=== PATIENT | female | born 1990 | race Caucasian/White ===

== ENCOUNTER 2016-04-23 17:57 | Emergency (ER) | payer OTHER ==
[2016-04-23 18:08] VITALS: BP 126/72; PULSE 104; TEMP 97.8; BMI 29.0
--- NOTE | 2016-04-23 19:47 | PDOC ---
History of Present Illness - General History Source: Patient Exam Limitations: No Limitations - History of Present Illness Initial Comments: 04/23/16 19:49 The patient is a 25 year old female, who is , approximately 17 weeks , with past gestational diabetes, and appendicitis s/p appendectomy who presents to the ED complaining of 1 day of intermittent suprapubic cramping. She states her cramping has become more frequent throughout the day, now becoming constant. No vaginal bleeding. No fever or chills. No hematuria, dysuria, frequency. No vomiting or diarrhea. She states she has history of labor at 30 weeks, prompting her to come to the ED for evaluation. PCP: Dr. Saleem \ <Jess Love - Last Filed: 04/23/16 21:00> <Leora Pedro - Last Filed: 04/23/16 21:13> <Jumana Quiroz - Last Filed: 04/23/16 21:30> - General Chief Complaint: Pain Stated Complaint: 17WKS/ABD PAIN Time Seen by Provider: 04/23/16 19:39 Past History <Jess Love - Last Filed: 04/23/16 21:00> - Past Medical History Asthma: No Cancer: No Cardiac Disorders: No Diabetes: No HTN: No Suicide Attempt (Hx): No Seizures: No Thyroid Disease: No Other medical history: none - Surgical History Appendectomy: Yes - Immunization History Immunization Up to Date: No - Psycho/Social/Smoking Cessation Hx Anxiety: No Suicidal Ideation: No Smoking Status: No Smoking History: Never smoked Have you smoked in the past 12 months: No Number of Cigarettes Smoked Daily: 0 Information on smoking cessation initiated: No Hx Alcohol Use: No Drug/Substance Use Hx: No Substance Use Type: None Hx Substance Use Treatment: No <Leora Pedro - Last Filed: 04/23/16 21:13> <Jumana Quiroz - Last Filed: 04/23/16 21:30> - Past Medical History Allergies/Adverse Reactions: Allergies Allergy/AdvReac Type Severity Reaction Status Date / Time No Known Allergies Allergy Verified 04/23/16 18:05 Home Medications: Ambulatory Orders Vit/Iron Fumarate/FA [ Tablet] 1 each PO DAILY 04/10/14 Acetaminophen [Tylenol .Regular Strength -] 650 mg PO Q6H PRN #0 tablet Ondansetron [Zofran Odt -] 4 mg SL TID #6 od.tablet 07/13/14 Erythromycin 0.5% Eye Ointment [Erythromycin 0.5% Eye Ointment -] 1 applic OU ASDIR #1 tube 10/04/15 Review of Systems - Review of Systems Able to Perform ROS?: Yes Comments:: 04/23/16 19:51 CONSTITUTIONAL: Absent: fever, chills, diaphoresis, generalized weakness, malaise, loss of appetite HEENT: Absent: rhinorrhea, nasal congestion, throat pain, throat swelling, difficulty swallowing, mouth swelling, ear pain, eye pain, visual Changes CARDIOVASCULAR: Absent: chest pain, syncope, palpitations, irregular heart rate, lightheadedness , peripheral edema RESPIRATORY: Absent: cough, shortness of breath, dyspnea with exertion, orthopnea, wheezing, stridor, hemoptysis GASTROINTESTINAL: Absent: abdominal pain, abdominal distension, nausea, vomiting, diarrhea, constipation, melena, hematochezia GENITOURINARY: Present: Suprapubic cramping. Absent: vaginal bleeding, dysuria, frequency, urgency, hesitancy, hematuria, flank pain, genital pain MUSCULOSKELETAL: Absent: myalgia, arthralgia, joint swelling SKIN: Absent: rash, itching, pallor HEMATOLOGIC/IMMUNOLOGIC: Absent: easy bleeding, easy bruising, lymphadenopathy, frequent infections ENDOCRINE: Absent: unexplained weight gain, unexplained weight loss, heat intolerance, cold intolerance NEUROLOGIC: Absent: headache, focal weakness or paresthesias, dizziness, unsteady gait, seizure, mental status changes, bladder or bowel incontinence PSYCHIATRIC: Absent: anxiety, depression, suicidal or homicidal ideation, hallucinations. <Jess Love - Last Filed: 04/23/16 21:00> *Physical Exam - Vital Signs Last Vital Signs Temp Pulse Resp BP Pulse Ox 97.8 F 104 H 18 126/72 100 04/23/16 18:06 04/23/16 18:06 04/23/16 18:06 04/23/16 18:06 04/23/16 18:06 - Physical Exam Comments: 04/23/16 19:53 GENERAL: Well developed, well nourished. Awake and alert. No acute distress. HEENT: Normocephalic, atraumatic. PERRLA, EOMI. No conjunctival pallor. Sclera are non- icteric. Moist mucous membranes. Oropharynx is clear. NECK: Supple. Full ROM. No JVD. Carotid pulses 2+ and symmetric, without bruits. No thyromegaly. No lymphadenopathy. CARDIOVASCULAR: Regular rate and rhythm. No murmurs, rubs, or gallops. Distal pulses are 2+ and symmetric. PULMONARY: No evidence of respiratory distress. Lungs clear to auscultation bilaterally. No wheezing, rales or rhonchi. ABDOMINAL: Soft. Non-tender. Non-distended. No rebound or guarding. No organomegaly. Normoactive bowel sounds. MUSCULOSKELETAL Normal range of motion at all joints. No bony deformities or tenderness. No CVA tenderness. EXTREMITIES: No cyanosis. No clubbing. No edema. No calf tenderness. SKIN: Warm and dry. Normal capillary refill. No rashes. No jaundice. NEUROLOGICAL: Alert, awake, appropriate. Cranial nerves 2-12 intact. No deficits to light touch and temperature in face, upper extremities and lower extremities. No motor deficits in the in face, upper extremities and lower extremities. Normoreflexic in the upper and lower extremities. Normal speech. Toes are down- going bilaterally. Gait is normal without ataxia. PSYCHIATRIC: Cooperative. Good eye contact. Appropriate mood and affect. <Jess Love - Last Filed: 04/23/16 21:00> - Vital Signs Last Vital Signs Temp Pulse Resp BP Pulse Ox 97.8 F 104 H 18 126/72 100 04/23/16 18:06 04/23/16 18:06 04/23/16 18:06 04/23/16 18:06 04/23/16 18:06 <Leora Pedro - Last Filed: 04/23/16 21:13> - Vital Signs Last Vital Signs Temp Pulse Resp BP Pulse Ox 97.8 F 104 H 18 126/72 100 04/23/16 18:06 04/23/16 18:06 04/23/16 18:06 04/23/16 18:06 04/23/16 18:06 <Jumana Quiroz - Last Filed: 04/23/16 21:30> ED Treatment Course - ADDITIONAL ORDERS Additional order review: Laboratory Results 04/23/16 19:46 Urine Color Ltyellow Urine Appearance Slcloudy Urine pH 6.0 Ur Specific Carroll 1.018 Urine Protein Negative Urine Glucose (UA) Negative Urine Ketones Negative Urine Blood Negative Urine Nitrite Negative Urine Bilirubin Negative Urine Urobilinogen Negative Ur Leukocyte Esterase Trace H D Urine RBC 1 Urine WBC 3 Ur Epithelial Cells Few Urine Bacteria Rare Hyaline Casts 1 Urine Mucus Rare Urine HCG, Qual Positive - RADIOLOGY Radiograph Interpretation: 04/23/16 21:26 Obstetrics Ultrasound Impression: Single viable intrauterine gestation at approximately 17 weeks 3 days. No definite sonographic abnormality is identified. Reported By: Estiven Smith MD <Jumana Quiroz - Last Filed: 04/23/16 21:30> Medical Decision Making - Medical Decision Making 04/23/16 21:00 Gestational US, read and interpreted by Dr. Smith reveals single viable IUP at approximately 17 weeks. <Jess Love - Last Filed: 04/23/16 21:00> *DC/Admit/Observation/Transfer - Attestations Scribe Attestion: 04/23/16 19:53 Documentation prepared by Jess Love, acting as medical billing assistant for Leora Pedro MD. 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
[2016-04-23 19:55] LABS: URINE APPEARANCE SLCLOUDY; URINE BILIRUBIN NEGATIVE (NEGATIVE); URINE BLOOD NEGATIVE (NEGATIVE); URINE COLOR LTYELLOW; URINE GLUCOSE (UA) NEGATIVE (NEGATIVE); URINE KETONE NEGATIVE (NEGATIVE); URINE NITRITE NEGATIVE (NEGATIVE); URINE PROTEIN NEGATIVE (NEGATIVE); URINE UROBILINOGEN NEGATIVE E.U./dl (0.2-1.0)
[2016-04-23 20:00] LABS: URINE LEUK ESTERASE TRACE (NEGATIVE)
[2016-04-23 20:01] LABS: URINE BACTERIA RARE /hpf (NONE SEEN); URINE HYALINE CAST 1 /lpf; URINE MUCUS RARE; URINE RBC 1 /hpf (0-3); URINE WBC 3 /hpf (3-5)
== END 2016-04-23 21:26 | disposition home or self-care (01) ==
LOC: JER 17:57
DX: O26.892 Other specified pregnancy related conditions, second trimester (principal); R10.2 Pelvic and perineal pain; Z3A.17 17 weeks gestation of pregnancy
CPT/HCPCS: 76815-TC; 81003; 81015; 84703; 99281-25

== ENCOUNTER 2016-09-06 09:20 | Inpatient (IN) | payer OTHER ==
[2016-09-06] MEDS ORDERED: TUBERCULIN PPD 5 TU/0.1ML SYRINGE (IN PATIENT USE ONLY) ID ONE (10:53)
[2016-09-06 11:31] LABS: BASOPHIL 0.4 % (0-2.0); EOSINOPHIL 0.9 % (0-4.5); MCH 26.8 pg (25.7-33.7); MCHC 32.8 g/dl (32.0-36.0); MEAN CELL VOLUME 81.7 fl (80-96); MEAN PLT VOLUME 10.3 fl (7.5-11.1); NEUTROPHILS 73.1 % (42.8-82.8); PLATELET COUNT 141 K/MM3 (134-434); RDW 15.5 % (11.6-15.6); WHITE BLOOD COUNT 7.8 K/mm3 (4.0-10.0)
[2016-09-06] MEDS ORDERED: BUTORPHANOL TARTRATE 1 MG/ML VIAL IVPB ONE (11:31)
--- NOTE | 2016-09-06 11:31 | HP ---
Past Medical History - Primary Care Physician PCP:: Roxann Hammond - Admission Chief Complaint: contractions at 36 weeks History Source: Patient - Past Medical History ...: 3 ...Para: 2 ...Term: 1 ...: 1 ...Spon : 0 ...Induced : 0 ...LMP: 12/27/15 ... Weeks Gestation by Dates: 36.2 ...EDC by Dates: 10/02/16 ...EDC by Sono: 09/29/16 Additional Medical History: gestational DM. x 1 6lb 12oz. abn pap hx LGSIl. Fm Hx Mother & father with DM. usg at 8wk edc of 06/08/14 ega 34.3 weeks - Past Surgical History Past Surgical History: Yes: None, Appendectomy Hx Myomectomy: No Hx Transabdominal Cerclage: No - Smoking History Smoking history: Never smoked Have you smoked in the past 12 months: No Aproximately how many cigarettes per day: 0 - Alcohol/Substance Use Hx Alcohol Use: No History of Substance Use: reports: None - Social History Usual Living Arrangement: Yes: With Spouse History of Recent Travel: No Home Medications - Allergies Allergies/Adverse Reactions: Allergies Allergy/AdvReac Type Severity Reaction Status Date / Time No Known Allergies Allergy Verified 08/31/16 23:59 - Home Medications Home Medications: Ambulatory Orders Vit/Iron Fumarate/FA [ Tablet] 1 each PO DAILY 04/10/14 Review of Systems - Review of Systems Constitutional: reports: No Symptoms Eyes: reports: No Symptoms HENT: reports: No Symptoms Neck: reports: No Symptoms Cardiovascular: reports: No Symptoms Respiratory: reports: No Symptoms Gastrointestinal: reports: No Symptoms Genitourinary: reports: No Symptoms Breasts: reports: No Symptoms Reported Musculoskeletal: reports: No Symptoms Integumentary: reports: No Symptoms Neurological: reports: No Symptoms Endocrine: reports: No Symptoms Hematology/Lymphatic: reports: No Symptoms Psychiatric: reports: No Symptoms Physical Exam - Maternity Constitutional: Yes: Well Nourished, No Distress Neck: Yes: WNL Cardiovascular: Yes: WNL, Regular Rate and Rhythm Lungs: Clear to auscultation Breast(s): Yes: WNL - Abdominal Exam/OB Fundal Height: 37 Number of Fetuses: Single Presentation: Vertex Contractions: Yes Regularity: Regular Intensity: Mild/Mod Monitor Mode: External Heart Rate (range): 140 Category: I Decelerations: None - Vaginal Exam/OB Speculum Exam: No Dilatation (cm): 2-3 Amniotic Membrane Status: Intact Presentation: Vertex/Position - Physical Exam Musculoskeletal: Yes: WNL Extremities: Yes: WNL Edema: No Integumentary: Yes: WNL Hemorrhage Risk Assessment - Risk Factors Risk Score: 0 Risk Level: Low Risk Assessment/Plan IUP at 36 .4 week contraction plan admit for IV hydration Ampicilin 2 gm
[2016-09-06] MEDS ORDERED: AMPICILLIN - 100 ML IVPB ONE (11:33)
[2016-09-06] MEDS ORDERED: ELECTROLYTE-148 SOLN 1,000 ML IV SCH (11:45)
[2016-09-06 11:59] LABS: CALCIUM 8.1 mg/dL (8.5-10.1); CREATININE 0.5 mg/dL (0.55-1.02)
[2016-09-06 12:16] VITALS: TEMP 98.1; BMI 31.1
[2016-09-06 12:19] LABS: INR 0.99 (0.82-1.09); PROTHROMBIN TIME (PATIENT) 10.9 SEC (9.98-11.88)
[2016-09-06 12:21] LABS: ACTIVATED PTT 28.5 SECONDS (26.9-34.4)
[2016-09-06 15:24] LABS: URINE APPEARANCE CLEAR; URINE BILIRUBIN NEGATIVE (NEGATIVE); URINE BLOOD NEGATIVE (NEGATIVE); URINE COLOR LTYELLOW; URINE GLUCOSE (UA) NEGATIVE (NEGATIVE); URINE KETONE TRACE (NEGATIVE); URINE NITRITE POSITIVE (NEGATIVE); URINE PROTEIN NEGATIVE (NEGATIVE); URINE UROBILINOGEN NEGATIVE E.U./dl (0.2-1.0)
[2016-09-06 15:25] LABS: URINE LEUK ESTERASE TRACE (NEGATIVE)
[2016-09-06 15:54] LABS: URINE MUCUS RARE; URINE RBC 1 /hpf (0-3); URINE WBC 3 /hpf (3-5)
[2016-09-06 16:17] VITALS: BP 112/68; PULSE 78
== END 2016-09-06 18:34 | disposition home or self-care (01) | DRG 563 ==
LOC: JDEL 09:20 → JLDR 10:50
PROVIDERS: ADMIT Obstetrics & Gynecology; ATTEND Obstetrics & Gynecology
DX: O60.03 Preterm labor without delivery, third trimester (principal); Z3A.36 36 weeks gestation of pregnancy
CPT/HCPCS: 36415; 80048; 81003; 81015; 85025; 85610; 85730; 86593; 86850; 86900; 86901

== ENCOUNTER 2016-09-15 05:00 | Inpatient (IN) | payer OTHER ==
[~2016-09-15 05:00] MED LIST: BUTORPHANOL TARTRATE 1 MG/ML VIAL IVPB ONE
[2016-09-15 05:37] LABS: BASOPHIL 0.3 % (0-2.0); EOSINOPHIL 0.2 % (0-4.5); MEAN CELL VOLUME 81.1 fl (80-96); MEAN PLT VOLUME 10.7 fl (7.5-11.1); NEUTROPHILS 80.6 % (42.8-82.8); PLATELET COUNT 136 K/MM3 (134-434); RDW 15.9 % (11.6-15.6); WHITE BLOOD COUNT 10.7 K/mm3 (4.0-10.0)
[2016-09-15 05:54] VITALS: BMI 31.1
[2016-09-15 05:55] LABS: CALCIUM 8.4 mg/dL (8.5-10.1); COCKROFT - GAULT 239.768; CREATININE 0.5 mg/dL (0.55-1.02)
[2016-09-15] MEDS ORDERED: D5W-LR W/ 20 UNITS OXYTOCIN 1,000 ML IV SCH (06:30)
[2016-09-15] MEDS ORDERED: PROMETHAZINE HCL 25 MG/1 ML VIAL IVPUSH ONE (06:37)
[2016-09-15] MEDS ORDERED: BISACODYL 10 MG SUPP.RECT RC PRN (06:38)
[2016-09-15] MEDS ORDERED: WITCH HAZEL 50% (TUCKS) 40 PAD/JAR PAD TP PRN (06:38)
[2016-09-15] MEDS ORDERED: BENZOCAINE 20% 57 GM BOTTLE TP PRN (06:38)
[2016-09-15] MEDS ORDERED: BENZOCAINE 28 GM HEMORRHOIDAL OINTMENT PR PRN (06:38)
[2016-09-15] MEDS ORDERED: METHYLERGONOVINE MALEATE 0.2 MG/1 ML AMP IM PRN (06:38)
[2016-09-15] MEDS ORDERED: ELECTROLYTE-148 SOLN 1,000 ML IV SCH (06:45)
--- NOTE | 2016-09-15 06:45 | HP ---
Past Medical History - Primary Care Physician PCP:: Roxann Hammond - Admission Chief Complaint: Labor History of Present Illness: 25 yo EDC by dates 10/02/16 ega 37.3 edc by Usg 09/29/16 ega 37.6 with c/ o labor +GDM - diet x 2 2011 2014 +afm +contractions no ROM No HAs History Source: Patient - Past Medical History ...: 3 ...Para: 2 ...Term: 1 ...: 1 ...Spon : 0 ...Induced : 0 ...Multiple Gestation: 0 ...LMP: 12/27/15 ... Weeks Gestation by Dates: 37.3 ...EDC by Dates: 10/02/16 ...EDC by Sono: 09/29/16 Additional Medical History: gestational DM. x 1 6lb 12oz. abn pap hx LGSIl. Fm Hx Mother & father with DM. usg at 8wk edc of 06/08/14 ega 34.3 weeks - Past Surgical History Past Surgical History: Yes: None, Appendectomy Hx Myomectomy: No Hx Transabdominal Cerclage: No - Smoking History Smoking history: Never smoked Have you smoked in the past 12 months: No Aproximately how many cigarettes per day: 0 - Alcohol/Substance Use Hx Alcohol Use: No History of Substance Use: reports: None - Social History Usual Living Arrangement: Yes: With Spouse History of Recent Travel: No Home Medications - Allergies Allergies/Adverse Reactions: Allergies Allergy/AdvReac Type Severity Reaction Status Date / Time No Known Allergies Allergy Verified 09/15/16 05:57 - Home Medications Home Medications: Ambulatory Orders Vit/Iron Fumarate/FA [ Tablet] 1 each PO DAILY 04/10/14 Review of Systems - Review of Systems Constitutional: reports: No Symptoms Eyes: reports: No Symptoms HENT: reports: No Symptoms Neck: reports: No Symptoms Cardiovascular: reports: No Symptoms Respiratory: reports: No Symptoms Gastrointestinal: reports: Abdominal Pain Genitourinary: reports: No Symptoms Breasts: reports: No Symptoms Reported Musculoskeletal: reports: No Symptoms Integumentary: reports: No Symptoms Neurological: reports: No Symptoms Endocrine: reports: No Symptoms Hematology/Lymphatic: reports: No Symptoms Psychiatric: reports: No Symptoms Physical Exam - Maternity Vital Signs: Vital Signs Temperature 98.1 F 09/15/16 05:01 Pulse Rate 74 09/15/16 05:01 Respiratory Rate 20 09/15/16 05:01 Blood Pressure 132/85 09/15/16 05:01 O2 Sat by Pulse Oximetry (%) Constitutional: Yes: Well Nourished, No Distress Neck: Yes: WNL Cardiovascular: Yes: WNL Lungs: Clear to auscultation Breast(s): Yes: WNL - Abdominal Exam/OB Number of Fetuses: Single Presentation: Vertex Contractions: Yes Regularity: Regular Intensity: Moderate Monitor Mode: External Category: I Accelerations: Non-Uniform Decelerations: None - Vaginal Exam/OB Dilatation (cm): FD Effacement (%): 100 Amniotic Membrane Status: Ruptured Amniotic Fluid: Yes: Clear Presentation: Vertex/Position - Physical Exam Musculoskeletal: Yes: WNL Extremities: Yes: WNL Edema: No Integumentary: Yes: WNL - Labs Lab Results: CBC, BMP 09/15/16 05:20 09/15/16 05:20 Hemorrhage Risk Assessment - Risk Factors Risk Score: 0 Risk Level: Low Risk Problem List - Problems (1) labor in third trimester Assessment/Plan: Early term labor at 37.3 weeks by dates Plan Anticipate vaginal delivery Code(s): O60.03 - LABOR WITHOUT DELIVERY, THIRD TRIMESTER Assessment/Plan IUP at 37.3 by dates Gest DM diet Cat 1 Early term labor Plan Anticipate vaginal delivery
[2016-09-15] MEDS ORDERED: AMPICILLIN - 2 GM in SODIUM CHLORIDE 100 ML IVPB ONE (06:58)
--- NOTE | 2016-09-15 07:38 | PN ---
Delivery - Delivery Vaginal Delivery: No Problems Type of Anesthesia: None Episiotomy/Laceration: None EBL (cc): 300 Delivery, Single - Stages of Labor Placenta: Yes: Spontaneous - Condition of Supply Chain Program Manager/Senior Analyst Developer Present: No Gender: Female Position: OA - Feeding Plan Initial Plan: Elected not to breastfeed exclusively throughout hospitalization
[2016-09-15 08:02] LABS: ARTERIAL BLOOD GAS BASE EXCESS -6.3 meq/l (-2-2); ARTERIAL BLOOD GAS HCO3 23.3 meq/L (22-26)
[2016-09-15 08:11] LABS: ARTERIAL BLOOD GAS pH 7.21 (7.35-7.45)
[2016-09-15 08:13] LABS: ARTERIAL BLOOD GAS PO2 23.9 mmHg (80-100)
[2016-09-15 08:14] LABS: VENOUS BLOOD GAS HCO3 20.7 meq/L (19-25); VENOUS PH 7.34 (7.32-7.42)
[2016-09-15] MEDS: ACETAMINOPHEN 325 MG TABLET (FP) PO PRN ×3 (09:32→19:45)
[2016-09-15] MEDS: IBUPROFEN 600 MG TABLET (FP) PO PRN ×3 (09:32→19:45)
[2016-09-15] MEDS ORDERED: TUBERCULIN PPD 5 TU/0.1ML SYRINGE (IN PATIENT USE ONLY) ID ONE (16:30)
[2016-09-16] MEDS: ACETAMINOPHEN 325 MG TABLET (FP) PO PRN ×3 (06:02→23:53)
[2016-09-16] MEDS: IBUPROFEN 600 MG TABLET (FP) PO PRN ×3 (06:03→23:53)
[2016-09-16 08:48] LABS: BASOPHIL 0.6 % (0-2.0); EOSINOPHIL 0.7 % (0-4.5); MCH 26.9 pg (25.7-33.7); MCHC 32.8 g/dl (32.0-36.0); MEAN CELL VOLUME 82.1 fl (80-96); MEAN PLT VOLUME 10.3 fl (7.5-11.1); NEUTROPHILS 69.9 % (42.8-82.8); PLATELET COUNT 136 K/MM3 (134-434); WHITE BLOOD COUNT 9.5 K/mm3 (4.0-10.0)
[2016-09-16] MEDS ORDERED: DIPHTH,PERTUSS(ACELL),TET 0.5 ML DISP.SYRIN IM ONE (10:00)
--- NOTE | 2016-09-16 21:27 | PN ---
Post Note - Post Date of Delivery: 09/15/16 Post Day: 1 Vital Signs: Vital Signs - 24 hr 09/15/16 09/16/16 09/16/16 22:11 02:00 06:08 Temperature 99.0 F 98.7 F 98.1 F Pulse Rate 67 70 69 Respiratory 20 20 20 Rate Blood Pressure 119/67 125/70 120/75 09/16/16 08:23 Temperature 97.6 F Pulse Rate 59 L Respiratory 20 Rate Blood Pressure 110/68 Labs: Laboratory Results - last 24 hr 09/16/16 08:30 WBC 9.5 RBC 3.94 Hgb 10.6 L Hct 32.4 MCV 82.1 MCHC 32.8 RDW 16.0 H Plt Count 136 MPV 10.3 Neutrophils % 69.9 Lymphocytes % 23.1 D Monocytes % 5.7 Eosinophils % 0.7 D Basophils % 0.6 - Subjective Subjective: No Complaints - Objective Breast: Not engorged Abdomen: Soft, Non-tender Uterus: Fundus firm, Non-tender Vagina: Scant lochia Extremities: Non-tender - Assessment/Plan (1) labor in third trimester Assessment: S/P Normal Plan: Routine Care
--- NOTE | 2016-09-16 21:31 | DS ---
Physical Exam-DENTAL INSURANCE BILLER Vital Signs: Vital Signs Temperature 97.6 F 09/16/16 08:23 Pulse Rate 59 L 09/16/16 08:23 Respiratory Rate 20 09/16/16 08:23 Blood Pressure 110/68 09/16/16 08:23 O2 Sat by Pulse Oximetry (%) 99 09/15/16 08:15 Constitutional: Yes: Well Nourished, No Distress Labs: CBC, BMP 09/16/16 08:30 09/15/16 05:20 Delivery - Delivery Vaginal Delivery: No Problems Type of Anesthesia: None Episiotomy/Laceration: None EBL (cc): 300 Delivery, Single - Stages of Labor Date 1st Stage Initiatied: 09/14/16 Time 1st Stage Initiated: 22:00 Date 2nd Stage Initiated: 09/15/16 Time 2nd Stage Initiated: 06:25 Date of Delivery: 09/15/16 Time of Delivery: 07:25 Time Placenta Delivered: 07:30 Placenta: Yes: Spontaneous - Condition of Infant Correctional Therapy Director/Director Payer Present: No Infant Gender: Female Weight: 7 lb 9 oz Position: OA Total Hours ROM (Hrs/Mins): 1/05 - 1 Minute Total Score: 9 5 Minutes Total Score: 10 - Feeding Plan Initial Plan: Elected not to breastfeed exclusively throughout hospitalization Discharge Summary Reason For Visit: LABOR Current Active Problems labor in third trimester (Acute) Procedures: Principal: Normal Delivery Condition: Good - Instructions Diet, Activity, Other Instructions: Physical activity Resume your normal everyday activity as tolerated no heavy lifting or exercise until seen by your surgeon. You may walk unlimited gwendolyn of and climb stairs. You may resume driving the car when you feel safe and comfortable behind the wheel. No sexual activity as instructed. Wound care If you have a bandage, leave it on, and keep dry for 48-72 hours. After that time discard the outer bandage. If they are tapes on the skin under the out of bandage leave them in place. They will peel off in the next 7 to 10 days. Do Not Peel them off. You may shower the day after surgery. If there are tapes present on the skin, you may shower over them. Diet There are no dietary restrictions. Eat healthy, high-fiber foods. Drink 6 to 8 glasses of liquid each day. This will assist in keeping your bowels are regular. Pain management You may take Tylenol or acetaminophen or Ibuprofen (for example, Motrin, Advil etc.) from my pain prescription medication is ordered should be taken as prescribed for moderate to severe pain. Call MD for any of the following: Severe pain not relieved by medication Fever of 101 or higher Excessive bleeding or drainage on dressing Inability to urinate Referrals: Roxann Hammond MD [Family Provider] - Disposition: HOME - Home Medications Comprehensive Discharge Medication List: Ambulatory Orders Vit/Iron Fumarate/FA [ Tablet] 1 each PO DAILY 04/10/14 Ibuprofen [Motrin -] 600 mg PO QID PRN #28 tablet 09/15/16
[2016-09-16 22:33] VITALS: TEMP 98.3
--- NOTE | 2016-09-17 05:49 | PN ---
Post Note - Post Date of Delivery: 09/15/16 Post Day: 2 Vital Signs: Vital Signs - 24 hr 09/16/16 09/16/16 09/16/16 06:08 08:23 22:28 Temperature 98.1 F 97.6 F 98.3 F Pulse Rate 69 59 L 70 Respiratory 20 20 20 Rate Blood Pressure 120/75 110/68 140/84 Labs: Laboratory Results - last 24 hr 09/16/16 08:30 WBC 9.5 RBC 3.94 Hgb 10.6 L Hct 32.4 MCV 82.1 MCHC 32.8 RDW 16.0 H Plt Count 136 MPV 10.3 Neutrophils % 69.9 Lymphocytes % 23.1 D Monocytes % 5.7 Eosinophils % 0.7 D Basophils % 0.6 - Subjective Subjective: No Complaints - Objective Afebrile: No Breast: Not engorged Abdomen: Soft, Non-tender Uterus: Fundus firm Vagina: Scant lochia Extremities: Non-tender - Assessment/Plan (1) labor in third trimester Assessment: S/P Normal Plan: Routine Care
[2016-09-17] MEDS: ACETAMINOPHEN 325 MG TABLET (FP) PO PRN (07:52)
[2016-09-17] MEDS: IBUPROFEN 600 MG TABLET (FP) PO PRN (07:52)
[2016-09-17 12:13] VITALS: BP 116/75; PULSE 68
== END 2016-09-17 12:00 | disposition home or self-care (01) | DRG 560 ==
LOC: JDEL 05:00 → JLDR 05:01 → J3W 09:20
PROVIDERS: ADMIT Obstetrics & Gynecology; ATTEND Obstetrics & Gynecology
PROC: 10E0XZZ Delivery of Products of Conception, External Approach (ICD-10-PCS; principal; 2016-09-15)
DX: O60.14X0 Preterm labor third trimester with preterm delivery third trimester, not applicable or unspecified (principal); O24.420 Gestational diabetes mellitus in childbirth, diet controlled; Z3A.37 37 weeks gestation of pregnancy; Z37.0 Single live birth
CPT/HCPCS: 36415; 36600; 59409; 80048; 82803; 85025; 85610; 85730; 86593; 86850; 86900; 86901; 90715